=== PATIENT | female | born 1935 | race Caucasian/White ===

== ENCOUNTER 2022-11-16 10:11 | Inpatient (IN) | payer OTHER, MEDICARE ==
[~2022-11-16] VITALS: Ht 144.8 cm; Wt 58.1 kg
--- NOTE | 2022-11-16 10:17 | NUR ---
BIB FROM HOME BY GRANDDAUGTHER FOR INCREASED WEAKESS AND INABILITY TO WALK. PER GRANDDAUGTHER, PT WAS ADMITTED TO [facility] FOR UTI AND WAS RELEASED AND WAS TRANSFERRED TO "[facility]" 1X WK. PER GRANDDAUGTHER, PT HAS A MECHANICAL FALL LAST NIGHT AND PT CALLED HER GRANDDAUGHTER TO INFORM HER OF WHAT HAPPENED. HX - DM, HTN, PACE MAKER MEDS - ELIQUIS PT IS A PRYDEINIG SPEAKER. PT IS AAXO4, VVS BREATHING EVEN AND UNLABORED ON RA, PT IN GOWN, ON DIRT SHOVELER SHOWING NSR. SAFETY PRECAUTIONS AND COMFORT MEASURES IN PLACE. PENDING MD MANDUJANO AND ORDERS.
--- NOTE | 2022-11-16 10:18 | NUR ---
DR. BASSETT AT BEDSIDE EXAMINING THE PT.
[2022-11-16 10:20] VITALS: BP_SYST 122
[2022-11-16 10:48] LABS: BASOPHILS % (AUTO) 0.4 % (0.0-2.0); EOSINOPHILS # (AUTO) 0.1 K/uL (0.0-0.4); EOSINOPHILS % (AUTO) 0.8 % (0.0-4.0); HEMATOCRIT 33.7 % (36-48); HEMOGLOBIN 11.4 g/dL (12.0-16.0); LYMPHOCYTES # (AUTO) 1.4 K/uL (1.0-5.5); LYMPHOCYTES % (AUTO) 14.8 % (20.5-51.5); MEAN CORPUSCULAR HEMOGLOBIN 30 pg (27-31); MEAN CORPUSCULAR HGB CONC 34 % (32-36); MEAN CORPUSCULAR VOLUME 89 fL (79.0-98.0); MONOCYTES # (AUTO) 0.9 K/uL (0.0-1.0); MONOCYTES % (AUTO) 9.2 % (1.7-9.3); NEUTROPHILS # (AUTO) 7.1 K/uL (1.8-7.7); NEUTROPHILS % (AUTO) 74.8 % (40.0-70.0); PLATELET COUNT (AUTO) 232 K/uL (130-430); RED BLOOD CELL COUNT(AUTO) 3.78 MIL/uL (4.2-6.2); RED CELL DISTRIBUTION WIDTH 13.9 % (9.0-15.0); WHITE BLOOD COUNT (AUTO) 9.5 K/uL (4.8-10.8)
[2022-11-16 11:08] LABS: ALANINE AMINOTRANSFERASE 15 U/L (12-78); ALBUMIN 2.9 g/dL (3.4-4.8); ANION GAP 8 (5-15); ASPARTATE AMINOTRANSFERASE 16 U/L (10-37); CALCIUM 8.5 mg/dL (8.4-11.0); CHLORIDE 96 mmol/L (98-107); CREATININE 1.11 mg/dL (0.55-1.30); GLUCOSE 222 mg/dL (70-99); LIPASE 134 U/L (73-393); TOTAL BILIRUBIN 0.4 mg/dL (0.0-1.0); UREA NITROGEN, BLOOD 33 mg/dL (8-21)
[2022-11-16 11:10] LABS: ALCOHOL, BLOOD < 3 mg/dL (<10)
[2022-11-16] MEDS ORDERED: NACL 0.9% 1,000 ML IV ONE (11:30)
--- NOTE | 2022-11-16 11:52 | NUR ---
NOTIFIED ED ADMITTING, [facility], REGARDING DR. BASSETT'S REQEUST FOR ADMISSION/TRANSFER. PER DR. BASSETT, PT IS STABLE FOR TRANSFER. WILL CONTACT OUTREACH LIAISON REGARDING THIS MATTER. PER FACESHEET: [facility]
[2022-11-16 12:10] LABS: BILIRUBIN,URINE NEGATIVE (NEGATIVE); BLOOD, URINE NEGATIVE (NEGATIVE); CLARITY/URINE SL CLOUDY (CLEAR); COLOR,URINE YELLOW (YELLOW); GLUCOSE,URINE NEGATIVE (NEGATIVE); KETONES,URINE NEGATIVE (NEGATIVE); LEUKOCYTE ESTERASE ,URINE 2+ (NEGATIVE); NITRITE, URINE POSITIVE (NEGATIVE); PROTEIN URINE NEGATIVE (NEGATIVE); UROBILINOGEN,URINE 0.2 (0.2-1.0)
[2022-11-16 12:23] LABS: BACTERIA,URINE MANY /HPF (None Seen); RBC,URINE 0-3 /HPF (0-3)
[2022-11-16] MEDS ORDERED: cefTRIAXone 1 GM in D5W 50 ML IV ONE (12:30)
--- NOTE | 2022-11-16 12:30 | NUR ---
reinsurance clerk gave verbal auth for admission. lillianarn spoke to yas holden caser in
--- NOTE | 2022-11-16 12:40 | NUR ---
Admit bed requested Patient will be admitted to care of . Admitted to MED SURG unit. Diagnosis UTI Inpatient (Yes or No) YES Observation (Yes or No) NO Orientation concerns or request close to nursing station (Yes or No) NO Covid Status NEGATIVE On vent or bipap NO Isolation requirements NONE Needs a sitter NO From Home (Yes or if No enter name of facility)YES Requires Dialysis (Yes or No) NO Med Rec Completed (Yes of No) YES
[2022-11-16] MEDS ORDERED: LORazepam 2 MG/ML VIAL IVP PRN (12:45)
[2022-11-16] MEDS ORDERED: ONDANSETRON HCL 4 MG/2 ML VIAL IVP PRN (12:45)
[2022-11-16] MEDS ORDERED: MAGNESIUM SULFATE 50 ML IV PRN (12:45)
[2022-11-16] MEDS ORDERED: MUPIROCIN 2% TOPICAL OINTMENT 22 GM NS PRN (12:45)
[2022-11-16] MEDS ORDERED: ACETAMINOPHEN 325 MG TABLET PO PRN ×2 (12:45→17:45)
[2022-11-16] MEDS ORDERED: MORPHINE 2 MG/ML INJ. SYRINGE IVP PRN ×2 (12:45)
[2022-11-16] MEDS ORDERED: DOCUSATE SODIUM 100 MG CAPSULE PO PRN (12:45)
[2022-11-16] MEDS ORDERED: DEXTROSE 50% JECT 50 ML DISP.SYRIN IVP PRN (12:45)
[2022-11-16] MEDS ORDERED: ZOLPIDEM TARTRATE 5 MG TABLET PO PRN (12:45)
[2022-11-16] MEDS ORDERED: POTASSIUM CHLORIDE 20 MEQ TAB.PRT.SR PO PRN (12:45)
[2022-11-16] MEDS ORDERED: ALEN10TA25 PO (13:26)
[2022-11-16] MEDS ORDERED: DOCU-144 PO (13:26)
[2022-11-16] MEDS ORDERED: HYDR-3917 PO (13:26)
[2022-11-16] MEDS ORDERED: OSCD500 PO (13:26)
[2022-11-16] MEDS ORDERED: ACET325T PO (13:26)
[2022-11-16] MEDS ORDERED: FAMO-279 PO (13:26)
[2022-11-16] MEDS ORDERED: APIX2.5T PO (13:26)
[2022-11-16] MEDS ORDERED: METO25TA6 PO (13:38)
[2022-11-16] MEDS ORDERED: LEVO75TA7 PO (13:38)
[2022-11-16] MEDS ORDERED: METH-799 PO (13:38)
[2022-11-16] MEDS ORDERED: LOSA50TA3 PO (13:38)
[2022-11-16] MEDS ORDERED: FURO-149 PO (13:38)
[2022-11-16] MEDS ORDERED: ONDA-8 TL (13:38)
[2022-11-16] MEDS ORDERED: METF-379 PO (13:38)
[2022-11-16] MEDS ORDERED: SENN8.6T19 PO (13:39)
[2022-11-16] MEDS ORDERED: cefTRIAXone 1 GM VIAL ONE (14:02)
[2022-11-16] MEDS ORDERED: ONDANSETRON HCL 4 MG/2 ML VIAL IVP ONE (14:15)
--- NOTE | 2022-11-16 14:15 | NUR ---
CONSULTATION PAGED/CALLED Reason for Consultation: [] AFIB Person Who was Notified: [] SHI GONZALES OF DR ESCUDERO Consulting Physician: [] SHI THOMPSON COVERING Ged Tutor Specialty: [] CARDIO Ordering Physician: [] DR NEIL
--- NOTE | 2022-11-16 14:30 | NUR ---
RECEIVED PATIENT FROM ER VIA STRETCHER ACCOMPANIED BY NURSE AND FAMILY MEMBER. PATIENT IS A 86 YO FEMALE ADMITTED WITH DX: UTI. AAO X4, C/O NAUSEA UPON ARRIVAL WHICH SUBSIDED SPONTANEOUSLY. DENIES ANY OTHER DISCOMFORT PRESENTLY. ORIENTED TO SURROUNDING, SAFETY PRECAUTIONS INITIATED, CALL LIGHT IN REACH. ADMISSION WORKUP IN PROGRESS. WILL CONTINUE TO MONITOR CLOSELY.
--- NOTE | 2022-11-16 14:40 | NUR ---
REPORT GIVEN TO MISHA ROMAN FOR CONTIUNITY OF CARE. ALL QUESTIONS AND CONCERNS ADDRESSED. ALL CARE ENDORSED.
[2022-11-16 14:51] VITALS: BP_SYST 132
[2022-11-16 16:00] VITALS: BP_SYST 111
[2022-11-16] MEDS ORDERED: METOPROLOL SUCCINATE 25 MG TAB.SR.24H (TOPROL XL) PO ONE (18:00)
[2022-11-16] MEDS: NACL 0.9% 1,000 ML IV SCH (19:05)
[2022-11-16 20:00] VITALS: BP_SYST 104
[2022-11-16] MEDS ORDERED: HEPARIN SODIUM,PORCINE 5,000 UNITS/ML VIAL SUBCUT SCH (21:00)
[2022-11-17 02:33] VITALS: BP_SYST 110
[2022-11-17 07:07] LABS: BASOPHILS % (AUTO) 0.3 % (0.0-2.0); EOSINOPHILS # (AUTO) 0.1 K/uL (0.0-0.4); EOSINOPHILS % (AUTO) 0.9 % (0.0-4.0); HEMATOCRIT 30.1 % (36-48); HEMOGLOBIN 10.3 g/dL (12.0-16.0); LYMPHOCYTES # (AUTO) 2.7 K/uL (1.0-5.5); LYMPHOCYTES % (AUTO) 31.4 % (20.5-51.5); MEAN CORPUSCULAR HEMOGLOBIN 31 pg (27-31); MEAN CORPUSCULAR HGB CONC 34 % (32-36); MEAN CORPUSCULAR VOLUME 90 fL (79.0-98.0); MONOCYTES # (AUTO) 1.1 K/uL (0.0-1.0); MONOCYTES % (AUTO) 12.9 % (1.7-9.3); NEUTROPHILS # (AUTO) 4.8 K/uL (1.8-7.7); NEUTROPHILS % (AUTO) 54.5 % (40.0-70.0); PLATELET COUNT (AUTO) 211 K/uL (130-430); RED BLOOD CELL COUNT(AUTO) 3.36 MIL/uL (4.2-6.2); RED CELL DISTRIBUTION WIDTH 14.1 % (9.0-15.0); WHITE BLOOD COUNT (AUTO) 8.7 K/uL (4.8-10.8)
[2022-11-17 07:14] LABS: ANION GAP 4 (5-15); CALCIUM 7.9 mg/dL (8.4-11.0); CHLORIDE 103 mmol/L (98-107); CREATININE 0.99 mg/dL (0.55-1.30); GLUCOSE 116 mg/dL (70-99); UREA NITROGEN, BLOOD 24 mg/dL (8-21)
[2022-11-17 07:41] VITALS: BP_SYST 102
[2022-11-17] MEDS ORDERED: LEVOTHYROXINE SODIUM 0.075 MG TABLET PO ONE (08:30)
[2022-11-17] MEDS: METOPROLOL SUCCINATE 25 MG TAB.SR.24H (TOPROL XL) PO SCH (08:47)
[2022-11-17] MEDS: APIXABAN 2.5 MG TABLET PO SCH ×2 (08:48→21:43)
[2022-11-17] MEDS ORDERED: METOPROLOL TARTRATE 25 MG TABLET PO SCH (09:00)
[2022-11-17] MEDS ORDERED: LOSARTAN POTASSIUM 50 MG TABLET (COZAAR) PO SCH (09:00)
[2022-11-17] MEDS ORDERED: FUROSEMIDE 40 MG TABLET PO SCH (09:00)
[2022-11-17 11:20] VITALS: BP_SYST 100
[2022-11-17] MEDS: cefTRIAXone 1 GM in D5W 50 ML IV SCH (11:48)
[2022-11-17 12:00] VITALS: BP_SYST 112
[2022-11-17] MEDS: NACL 0.9% 1,000 ML IV SCH (14:29)
[2022-11-17 15:20] VITALS: BP_SYST 118
[2022-11-17 20:00] VITALS: BP_SYST 126
[2022-11-17] MEDS: INSULIN LISPRO SLIDING SCALE 100 UNITS/ML, 3 ML VIAL (humaLOG) SUBCUT PRN (21:47)
[2022-11-18] VITALS: BP_SYST 123
[2022-11-18] MEDS: LEVOTHYROXINE SODIUM 0.075 MG TABLET PO SCH (06:43)
[2022-11-18 07:23] LABS: ANION GAP 6 (5-15); CALCIUM 7.9 mg/dL (8.4-11.0); CHLORIDE 105 mmol/L (98-107); GLUCOSE 91 mg/dL (70-99); UREA NITROGEN, BLOOD 16 mg/dL (8-21)
[2022-11-18 07:37] LABS: BASOPHILS % (AUTO) 0.4 % (0.0-2.0); EOSINOPHILS # (AUTO) 0.2 K/uL (0.0-0.4); EOSINOPHILS % (AUTO) 2.6 % (0.0-4.0); HEMOGLOBIN 9.9 g/dL (12.0-16.0); LYMPHOCYTES # (AUTO) 1.9 K/uL (1.0-5.5); LYMPHOCYTES % (AUTO) 29.5 % (20.5-51.5); MEAN CORPUSCULAR HEMOGLOBIN 32 pg (27-31); MEAN CORPUSCULAR HGB CONC 34 % (32-36); MEAN CORPUSCULAR VOLUME 92 fL (79.0-98.0); MONOCYTES # (AUTO) 0.7 K/uL (0.0-1.0); NEUTROPHILS # (AUTO) 3.6 K/uL (1.8-7.7); NEUTROPHILS % (AUTO) 56.5 % (40.0-70.0); PLATELET COUNT (AUTO) 220 K/uL (130-430); RED BLOOD CELL COUNT(AUTO) 3.15 MIL/uL (4.2-6.2); RED CELL DISTRIBUTION WIDTH 13.8 % (9.0-15.0)
[2022-11-18 07:51] LABS: WHITE BLOOD COUNT (AUTO) 6.4 K/uL (4.8-10.8)
[2022-11-18 08:38] VITALS: BP_SYST 133
--- NOTE | 2022-11-18 08:50 | NUR ---
INITIAL ROUNDS Received pt AAOx4, no s/s resp distress, no c/o pain or discomfort. IVF infusing well at ordered rate with no s/s infiltration to site. Side rails up x3, bed alarm on for safety, call light within reach.
[2022-11-18] MEDS: APIXABAN 2.5 MG TABLET PO SCH ×2 (10:02→21:42)
[2022-11-18] MEDS: cefTRIAXone 1 GM in D5W 50 ML IV SCH (10:03)
[2022-11-18] MEDS: METOPROLOL SUCCINATE 25 MG TAB.SR.24H (TOPROL XL) PO SCH (10:03)
[2022-11-18 11:59] VITALS: BP_SYST 111
[2022-11-18] MEDS: INSULIN LISPRO SLIDING SCALE 100 UNITS/ML, 3 ML VIAL (humaLOG) SUBCUT PRN ×3 (12:14→21:27)
--- NOTE | 2022-11-18 14:31 | NUR ---
ISOLATION Pt now has e. Coli MDRO of the urine. Pt placed on contact isolation. Pt's granddaughter Nai called, awaiting call back.
--- NOTE | 2022-11-18 16:06 | NUR ---
Dietitian Recommendations * Recommend Cardiac; CCHO; Pureed Diet * Monitor POC BGs Please refer to nutrition assessment for details. GINO SORIANO Addendum: 11/18/22 at [address] Amended: Links added.
[2022-11-18 16:50] VITALS: BP_SYST 134
[2022-11-18] MEDS: NACL 0.9% 1,000 ML IV SCH (17:13)
--- NOTE | 2022-11-18 18:40 | NUR ---
FAMILY INFORMED Pt's granddaughter Nai called and informed of that the pt is now on contact isolation precaution s for E. coli MDRO of the urine. Briefly explained why pt placed on contact isolation and about the bacteria/antibiotics-teach back done.
--- NOTE | 2022-11-18 18:45 | NUR ---
CLOSING NOTE Pt sitting up in bed feeding herself dinner. No s/s resp distress, no c/o pain or discomfort. IVF infusing well at ordered rate with no s/s infiltration to site. Pt remains on contact isolation precautions for MDRO of the urine. Aspiration, skin and safety precautions remain in place. Call light within reach.
[2022-11-18 20:00] VITALS: BP_SYST 127
[2022-11-19] VITALS: BP_SYST 125
[2022-11-19] MEDS: NACL 0.9% 1,000 ML IV SCH ×2 (05:31→18:12)
[2022-11-19 06:32] LABS: BASOPHILS % (AUTO) 0.2 % (0.0-2.0); EOSINOPHILS # (AUTO) 0.2 K/uL (0.0-0.4); EOSINOPHILS % (AUTO) 2.3 % (0.0-4.0); HEMATOCRIT 29.7 % (36-48); HEMOGLOBIN 10.1 g/dL (12.0-16.0); LYMPHOCYTES # (AUTO) 1.9 K/uL (1.0-5.5); LYMPHOCYTES % (AUTO) 27.7 % (20.5-51.5); MEAN CORPUSCULAR HEMOGLOBIN 31 pg (27-31); MEAN CORPUSCULAR HGB CONC 34 % (32-36); MEAN CORPUSCULAR VOLUME 91 fL (79.0-98.0); MONOCYTES # (AUTO) 0.8 K/uL (0.0-1.0); MONOCYTES % (AUTO) 11.4 % (1.7-9.3); NEUTROPHILS # (AUTO) 4.1 K/uL (1.8-7.7); NEUTROPHILS % (AUTO) 58.4 % (40.0-70.0); PLATELET COUNT (AUTO) 235 K/uL (130-430); RED BLOOD CELL COUNT(AUTO) 3.27 MIL/uL (4.2-6.2); RED CELL DISTRIBUTION WIDTH 13.8 % (9.0-15.0)
[2022-11-19] MEDS: LEVOTHYROXINE SODIUM 0.075 MG TABLET PO SCH (06:33)
[2022-11-19 06:45] LABS: ANION GAP 7 (5-15); CALCIUM 7.8 mg/dL (8.4-11.0); CHLORIDE 104 mmol/L (98-107); GLUCOSE 114 mg/dL (70-99); UREA NITROGEN, BLOOD 16 mg/dL (8-21)
--- NOTE | 2022-11-19 08:10 | NUR ---
INITIAL ROUNDS Received pt AAOx4, no s/s resp distress, no c/o pain or discomfort. Pt on Contact isolation precautions for E. coli & MDRO of the urine. IVF infusing well at ordered rate with no s/s infiltration to site. Pt repositioned with pillow support for skin care and comfort. Side rails up x3, bed alarm on for safety, call light within reach.
[2022-11-19 08:26] VITALS: BP_SYST 122
[2022-11-19] MEDS: METOPROLOL SUCCINATE 25 MG TAB.SR.24H (TOPROL XL) PO SCH (09:08)
[2022-11-19] MEDS: cefTRIAXone 1 GM in D5W 50 ML IV SCH (09:09)
[2022-11-19] MEDS: APIXABAN 2.5 MG TABLET PO SCH ×2 (09:10→20:55)
[2022-11-19] MEDS: INSULIN LISPRO SLIDING SCALE 100 UNITS/ML, 3 ML VIAL (humaLOG) SUBCUT PRN (12:25)
[2022-11-19 16:35] VITALS: BP_SYST 120
--- NOTE | 2022-11-19 19:35 | NUR ---
CLOSING NOTE Pt resting quietly in bed with no s/s resp distress, no c/o pain or discomfort. Contact isolation precautions maintained throughout the shift. IVF infusing well at ordered rate to LFA/wrist with no s/s infiltration to site. Aspiration, skin and safety precautions remain in place. Endorsed care to cable splicer helper nurse Brooks. Call light within reach.
[2022-11-19 20:00] VITALS: BP_SYST 130
[2022-11-20] VITALS: BP_SYST 144
[2022-11-20 06:20] LABS: BASOPHILS # (AUTO) 0.1 K/uL (0.0-0.2); BASOPHILS % (AUTO) 0.7 % (0.0-2.0); EOSINOPHILS # (AUTO) 0.2 K/uL (0.0-0.4); EOSINOPHILS % (AUTO) 2.4 % (0.0-4.0); HEMATOCRIT 28.8 % (36-48); LYMPHOCYTES # (AUTO) 2.2 K/uL (1.0-5.5); LYMPHOCYTES % (AUTO) 28.4 % (20.5-51.5); MEAN CORPUSCULAR HEMOGLOBIN 31 pg (27-31); MEAN CORPUSCULAR HGB CONC 35 % (32-36); MEAN CORPUSCULAR VOLUME 88 fL (79.0-98.0); MONOCYTES # (AUTO) 0.8 K/uL (0.0-1.0); MONOCYTES % (AUTO) 10.5 % (1.7-9.3); NEUTROPHILS # (AUTO) 4.6 K/uL (1.8-7.7); PLATELET COUNT (AUTO) 245 K/uL (130-430); RED BLOOD CELL COUNT(AUTO) 3.27 MIL/uL (4.2-6.2); RED CELL DISTRIBUTION WIDTH 13.7 % (9.0-15.0); WHITE BLOOD COUNT (AUTO) 7.9 K/uL (4.8-10.8)
[2022-11-20 06:50] LABS: ANION GAP 7 (5-15); CALCIUM 8.1 mg/dL (8.4-11.0); CHLORIDE 102 mmol/L (98-107); CREATININE 0.91 mg/dL (0.55-1.30); GLUCOSE 112 mg/dL (70-99); UREA NITROGEN, BLOOD 13 mg/dL (8-21)
[2022-11-20] MEDS: LEVOTHYROXINE SODIUM 0.075 MG TABLET PO SCH (07:12)
[2022-11-20 08:31] VITALS: BP_SYST 137
[2022-11-20] MEDS ORDERED: AMOX-423 PO ×2 (09:03)
[2022-11-20] MEDS: cefTRIAXone 1 GM in D5W 50 ML IV SCH (10:00)
[2022-11-20] MEDS: METOPROLOL SUCCINATE 25 MG TAB.SR.24H (TOPROL XL) PO SCH (10:01)
[2022-11-20] MEDS: APIXABAN 2.5 MG TABLET PO SCH ×2 (10:02→20:48)
[2022-11-20 11:03] VITALS: BP_SYST 138
[2022-11-20] MEDS ORDERED: IPRATROPIUM/ALBUTEROL SULFATE 3 ML AMPUL.NEB (DUONEB) INH PRN (12:45)
[2022-11-20 16:54] VITALS: BP_SYST 133
[2022-11-20 17:32] VITALS: BP_SYST 133
[2022-11-20 20:00] VITALS: BP_SYST 115
[2022-11-20] MEDS: INSULIN LISPRO SLIDING SCALE 100 UNITS/ML, 3 ML VIAL (humaLOG) SUBCUT PRN (20:44)
[2022-11-20] MEDS: NACL 0.9% 1,000 ML IV SCH (23:36)
[2022-11-21 00:23] VITALS: BP_SYST 108
[2022-11-21] MEDS: LEVOTHYROXINE SODIUM 0.075 MG TABLET PO SCH (06:52)
[2022-11-21 07:15] LABS: ANION GAP 9 (5-15); CALCIUM 7.9 mg/dL (8.4-11.0); CHLORIDE 102 mmol/L (98-107); CREATININE 0.86 mg/dL (0.55-1.30); GLUCOSE 118 mg/dL (70-99); UREA NITROGEN, BLOOD 16 mg/dL (8-21)
[2022-11-21 07:58] LABS: BASOPHILS % (AUTO) 0.3 % (0.0-2.0); EOSINOPHILS # (AUTO) 0.1 K/uL (0.0-0.4); EOSINOPHILS % (AUTO) 1.8 % (0.0-4.0); HEMATOCRIT 27.9 % (36-48); HEMOGLOBIN 9.7 g/dL (12.0-16.0); LYMPHOCYTES # (AUTO) 1.7 K/uL (1.0-5.5); LYMPHOCYTES % (AUTO) 20.9 % (20.5-51.5); MEAN CORPUSCULAR HEMOGLOBIN 31 pg (27-31); MEAN CORPUSCULAR HGB CONC 35 % (32-36); MEAN CORPUSCULAR VOLUME 91 fL (79.0-98.0); MONOCYTES # (AUTO) 0.9 K/uL (0.0-1.0); NEUTROPHILS # (AUTO) 5.3 K/uL (1.8-7.7); PLATELET COUNT (AUTO) 262 K/uL (130-430); RED BLOOD CELL COUNT(AUTO) 3.07 MIL/uL (4.2-6.2); RED CELL DISTRIBUTION WIDTH 13.6 % (9.0-15.0)
[2022-11-21 08:42] VITALS: BP_SYST 141
[2022-11-21] MEDS: METOPROLOL SUCCINATE 25 MG TAB.SR.24H (TOPROL XL) PO SCH (08:44)
[2022-11-21] MEDS: APIXABAN 2.5 MG TABLET PO SCH (08:45)
[2022-11-21] MEDS: cefTRIAXone 1 GM in D5W 50 ML IV SCH (08:46)
[2022-11-21 11:49] VITALS: BP_SYST 145
--- NOTE | 2022-11-21 13:16 | NUR ---
Patient accepted at [facility] Room 22B-number for report [phone]. Ambulance transport by [facility] [phone]- at 4:30 PM. Daughter, Dena, agreed to transfer.
[2022-11-21 15:22] VITALS: BP_SYST 132
--- NOTE | 2022-11-21 15:53 | NUR ---
Called to [facility] and gave report to @ [phone]. Called Grand daughter , Anu and updated her on patient's current condition and transfer at [facility] room # 22B.
--- NOTE | 2022-11-21 17:50 | NUR ---
D/C Patient to [facility] via [facility] via gurney. Patient's awake, alert in no acute distress. Gave the discharge documents to one EMT. Patient speaks Danish only but grand daughter Anu was on the phone when given medication reconciliation form and D/C instructions. Exit Care provided. Patient verbalized understanding. discussed with patient the results and treatment provided. Patient is going to [facility] for skilled PT. Patient remains weak, as per PT's note, patient's able to ambulate 500 feet. Patient's in stable condition, ID band removed. IV catheter removed, intact and dressing applied, no active bleeding. All belongings sent with patient. BP 132/71; WV 65; RR 16; O2 sat on RA 96-98 % with no c/o any pain or discomfort.
[2022-11-21 17:51] VITALS: BP_SYST 116
== END 2022-11-21 17:50 | disposition home health service (06) | DRG 463 ==
LOC: SED 10:11 → SMU 12:41
PROVIDERS: ADMIT General Practice; ATTEND General Practice
DX: N39.0 Urinary tract infection, site not specified (principal); E44.0 Moderate protein-calorie malnutrition; D63.8 Anemia in other chronic diseases classified elsewhere; E87.1 Hypo-osmolality and hyponatremia; E86.0 Dehydration; I48.91 Unspecified atrial fibrillation; E11.9 Type 2 diabetes mellitus without complications; B96.20 Unspecified Escherichia coli [E. coli] as the cause of diseases classified elsewhere; E87.5 Hyperkalemia; I10 Essential (primary) hypertension; Z68.27 Body mass index [BMI] 27.0-27.9, adult; I25.10 Atherosclerotic heart disease of native coronary artery without angina pectoris; Z20.822 Contact with and (suspected) exposure to COVID-19; Z95.0 Presence of cardiac pacemaker; Z79.01 Long term (current) use of anticoagulants
CPT/HCPCS: 36415; 70450-TC; 71045; 72125-TC; 72170-TC; 76376; 80048; 80053; 81000; 83037; 83605; 83690; 83735; 83880; 83930; 84484; 85025; 87040; 87086; 93005; 93306; 93971; 94760; 96361; 96365; 96375; 97110-GP; 97116-GP; 97530-GP; 99291; G0482; J0696; J1644; J2270; J2405; J7060

== ENCOUNTER 2022-11-27 15:05 | Inpatient (IN) | payer OTHER, MEDICARE ==
[~2022-11-27] VITALS: Ht 160 cm; Wt 55.8 kg
[~2022-11-27 15:05] MED LIST: ACET325T PO; ALEN10TA25 PO; AMOX-423 PO; APIX2.5T PO; DOCU-144 PO; FAMO-279 PO; FURO-149 PO; HYDR-3917 PO; LEVO75TA7 PO; LOSA50TA3 PO; METF-379 PO; METH-799 PO; METO25TA6 PO; ONDA-8 TL; OSCD500 PO; SENN8.6T19 PO
[2022-11-27] MEDS ORDERED: NACL 0.9% 1,000 ML IV ONE (15:15)
[2022-11-27 15:21] VITALS: BP_SYST 153
[2022-11-27 16:01] LABS: BASOPHILS % (AUTO) 0.2 % (0.0-2.0); EOSINOPHILS # (AUTO) 0.1 K/uL (0.0-0.4); EOSINOPHILS % (AUTO) 0.5 % (0.0-4.0); HEMATOCRIT 34.2 % (36-48); HEMOGLOBIN 11.6 g/dL (12.0-16.0); LYMPHOCYTES # (AUTO) 1.6 K/uL (1.0-5.5); LYMPHOCYTES % (AUTO) 12.9 % (20.5-51.5); MEAN CORPUSCULAR HEMOGLOBIN 30 pg (27-31); MEAN CORPUSCULAR HGB CONC 34 % (32-36); MEAN CORPUSCULAR VOLUME 88 fL (79.0-98.0); MONOCYTES # (AUTO) 0.7 K/uL (0.0-1.0); MONOCYTES % (AUTO) 5.3 % (1.7-9.3); NEUTROPHILS # (AUTO) 10.3 K/uL (1.8-7.7); NEUTROPHILS % (AUTO) 81.1 % (40.0-70.0); PLATELET COUNT (AUTO) 433 K/uL (130-430); RED BLOOD CELL COUNT(AUTO) 3.88 MIL/uL (4.2-6.2); WHITE BLOOD COUNT (AUTO) 12.7 K/uL (4.8-10.8)
[2022-11-27 16:14] LABS: ALANINE AMINOTRANSFERASE 25 U/L (12-78); ALBUMIN 3.1 g/dL (3.4-4.8); ANION GAP 11 (5-15); ASPARTATE AMINOTRANSFERASE 26 U/L (10-37); CALCIUM 8.9 mg/dL (8.4-11.0); CHLORIDE 96 mmol/L (98-107); CREATININE 0.89 mg/dL (0.55-1.30); GLUCOSE 142 mg/dL (70-99); TOTAL BILIRUBIN 0.2 mg/dL (0.0-1.0); UREA NITROGEN, BLOOD 21 mg/dL (8-21)
[2022-11-27 17:31] LABS: BILIRUBIN,URINE NEGATIVE (NEGATIVE); BLOOD, URINE NEGATIVE (NEGATIVE); CLARITY/URINE CLEAR (CLEAR); COLOR,URINE YELLOW (YELLOW); GLUCOSE,URINE NEGATIVE (NEGATIVE); KETONES,URINE NEGATIVE (NEGATIVE); LEUKOCYTE ESTERASE ,URINE NEGATIVE (NEGATIVE); NITRITE, URINE NEGATIVE (NEGATIVE); PROTEIN URINE NEGATIVE (NEGATIVE); UROBILINOGEN,URINE 0.2 (0.2-1.0)
[2022-11-27] MEDS ORDERED: ACETAMINOPHEN 500 MG TABLET PO ONE (18:15)
[2022-11-27] MEDS ORDERED: VANCOMYCIN HCL 1,000 MG in NS 250 ML IV ONE (18:30)
[2022-11-27] MEDS ORDERED: MEROPENEM 1 GM IVPB PREMIX 50 ML IV ONE (18:30)
[2022-11-27] MEDS ORDERED: ONDANSETRON HCL 4 MG/2 ML VIAL IVP PRN ×2 (18:45→23:45)
[2022-11-27] MEDS ORDERED: MUPIROCIN 2% TOPICAL OINTMENT 22 GM NS PRN (18:45)
[2022-11-27] MEDS ORDERED: DEXTROSE 50% JECT 50 ML DISP.SYRIN IVP PRN (18:45)
[2022-11-27] MEDS ORDERED: MORPHINE 2 MG/ML INJ. SYRINGE IVP PRN (18:45)
[2022-11-27] MEDS ORDERED: DOCUSATE SODIUM 100 MG CAPSULE PO PRN (18:45)
[2022-11-27] MEDS ORDERED: ACETAMINOPHEN 325 MG TABLET PO PRN ×3 (18:45→23:45)
[2022-11-27] MEDS ORDERED: POTASSIUM CHLORIDE 20 MEQ TAB.PRT.SR PO PRN (18:45)
[2022-11-27] MEDS ORDERED: MAGNESIUM SULFATE 50 ML IV PRN (18:45)
[2022-11-27] MEDS ORDERED: NACL 0.9% 1,000 ML IV SCH (19:00)
[2022-11-27] MEDS ORDERED: INSULIN Lispro 100 UNITS/ML, 3 ML VIAL (humaLOG) ONE (19:56)
[2022-11-27] MEDS: INSULIN LISPRO SLIDING SCALE 100 UNITS/ML, 3 ML VIAL (humaLOG) SUBCUT PRN (20:24)
[2022-11-27 23:03] VITALS: BP_SYST 118
[2022-11-27] MEDS ORDERED: HYDROcodone/ACETAMIN 5-325 MG TAB (NORCO/ VICODIN) PO PRN (23:45)
[2022-11-27] MEDS ORDERED: ALENDRONATE SODIUM 10 MG TABLET (FOSAMAX) PO SCH (23:45)
[2022-11-27] MEDS ORDERED: cefTRIAXone 1 GM in D5W 50 ML IV SCH (23:45)
[2022-11-27] MEDS ORDERED: ONDANSETRON 4 MG ODT TAB TL PRN (23:45)
[2022-11-27] MEDS ORDERED: NALOXONE HCL 0.4 MG/ML AMP (NARCAN) IVP PRN (23:45)
[2022-11-28] MEDS ORDERED: INSULIN REGULAR, HUMAN 100 UNITS/ML, 3 ML VIAL (humuLIN R) SUBCUT PRN
[2022-11-28] MEDS ORDERED: KCL 20 mEq in NS 1000 mL 1,000 ML IV ONE (00:08)
[2022-11-28] MEDS: KCL 20 mEq in NS 1000 mL 1,000 ML IV SCH ×2 (00:20→12:43)
[2022-11-28] MEDS: PANTOPRAZOLE SODIUM 40 MG/VIAL (PROTONIX) IVP SCH ×2 (00:24→09:29)
[2022-11-28] MEDS ORDERED: PIPERACILLIN/TAZOBACTAM 3.375 GM/VIAL (ZOSYN) IV ONE (00:36)
[2022-11-28] MEDS: PIPERACILLIN/TAZO 3.375/DEX-IS 50 ML IV SCH ×5 (01:01→23:56)
[2022-11-28 01:19] VITALS: BP_SYST 120
[2022-11-28] MEDS: LEVOTHYROXINE SODIUM 0.075 MG TABLET PO SCH (06:28)
[2022-11-28 07:21] LABS: BASOPHILS % (AUTO) 0.3 % (0.0-2.0); EOSINOPHILS # (AUTO) 0.1 K/uL (0.0-0.4); EOSINOPHILS % (AUTO) 0.6 % (0.0-4.0); HEMATOCRIT 30.9 % (36-48); HEMOGLOBIN 10.6 g/dL (12.0-16.0); LYMPHOCYTES # (AUTO) 2.1 K/uL (1.0-5.5); LYMPHOCYTES % (AUTO) 20.8 % (20.5-51.5); MEAN CORPUSCULAR HEMOGLOBIN 31 pg (27-31); MEAN CORPUSCULAR HGB CONC 34 % (32-36); MEAN CORPUSCULAR VOLUME 90 fL (79.0-98.0); MONOCYTES # (AUTO) 0.8 K/uL (0.0-1.0); MONOCYTES % (AUTO) 7.9 % (1.7-9.3); NEUTROPHILS # (AUTO) 7.2 K/uL (1.8-7.7); NEUTROPHILS % (AUTO) 70.4 % (40.0-70.0); PLATELET COUNT (AUTO) 368 K/uL (130-430); RED BLOOD CELL COUNT(AUTO) 3.43 MIL/uL (4.2-6.2); RED CELL DISTRIBUTION WIDTH 14.2 % (9.0-15.0); WHITE BLOOD COUNT (AUTO) 10.2 K/uL (4.8-10.8)
[2022-11-28 07:33] LABS: ALANINE AMINOTRANSFERASE 20 U/L (12-78); ALBUMIN 2.5 g/dL (3.4-4.8); AMYLASE 57 U/L (0-100); ANION GAP 8 (5-15); ASPARTATE AMINOTRANSFERASE 20 U/L (10-37); CALCIUM 7.9 mg/dL (8.4-11.0); CHLORIDE 103 mmol/L (98-107); CREATININE 0.95 mg/dL (0.55-1.30); GLUCOSE 111 mg/dL (70-99); LIPASE 110 U/L (73-393); TOTAL BILIRUBIN 0.5 mg/dL (0.0-1.0); UREA NITROGEN, BLOOD 18 mg/dL (8-21)
[2022-11-28] MEDS ORDERED: metFORMIN HCL 500 MG TABLET PO SCH (08:00)
[2022-11-28] MEDS: MORPHINE 2 MG/ML INJ. SYRINGE IVP PRN ×2 (08:18→16:42)
[2022-11-28] MEDS ORDERED: ALEN70TA84 PO (08:35)
[2022-11-28] MEDS ORDERED: methocarbamoL 500 MG TABLET PO SCH (09:00)
[2022-11-28] MEDS: SENNOSIDES 8.6 MG TABLET PO SCH ×2 (09:29→21:16)
[2022-11-28] MEDS: CALCIUM CARBONATE/VITAMIN D3 1 TAB TABLET PO SCH ×2 (09:29→21:16)
[2022-11-28] MEDS: APIXABAN 2.5 MG TABLET PO SCH ×2 (09:29→21:18)
[2022-11-28] MEDS: DOCUSATE SODIUM 100 MG CAPSULE PO SCH ×2 (09:29→21:16)
[2022-11-28] MEDS: LOSARTAN POTASSIUM 50 MG TABLET (COZAAR) PO SCH ×2 (09:30→21:00)
[2022-11-28] MEDS: METOPROLOL TARTRATE 25 MG TABLET PO SCH ×2 (09:31→21:16)
[2022-11-28 11:05] VITALS: BP_SYST 104
[2022-11-28] MEDS ORDERED: DIATR MEGLU/DIATRIZ SOD 30 ML SOLUTION PO ONE (13:57)
[2022-11-28 16:55] VITALS: BP_SYST 110
[2022-11-28 20:00] VITALS: BP_SYST 107
[2022-11-28] MEDS: metroNIDAZOLE 500 mg/NS 100 ML IV SCH (21:42)
[2022-11-29 00:14] VITALS: BP_SYST 108
[2022-11-29] MEDS: KCL 20 mEq in NS 1000 mL 1,000 ML IV SCH ×2 (03:29→18:14)
[2022-11-29] MEDS: PIPERACILLIN/TAZO 3.375/DEX-IS 50 ML IV SCH ×3 (06:11→18:13)
[2022-11-29] MEDS: LEVOTHYROXINE SODIUM 0.075 MG TABLET PO SCH ×2 (06:11→06:15)
[2022-11-29] MEDS: metroNIDAZOLE 500 mg/NS 100 ML IV SCH ×3 (06:11→21:49)
[2022-11-29 07:10] LABS: BASOPHILS % (AUTO) 0.3 % (0.0-2.0); EOSINOPHILS # (AUTO) 0.2 K/uL (0.0-0.4); EOSINOPHILS % (AUTO) 3.1 % (0.0-4.0); HEMATOCRIT 30.7 % (36-48); HEMOGLOBIN 10.4 g/dL (12.0-16.0); LYMPHOCYTES # (AUTO) 2.3 K/uL (1.0-5.5); LYMPHOCYTES % (AUTO) 30.8 % (20.5-51.5); MEAN CORPUSCULAR HEMOGLOBIN 30 pg (27-31); MEAN CORPUSCULAR HGB CONC 34 % (32-36); MEAN CORPUSCULAR VOLUME 88 fL (79.0-98.0); MONOCYTES # (AUTO) 0.7 K/uL (0.0-1.0); MONOCYTES % (AUTO) 9.7 % (1.7-9.3); NEUTROPHILS # (AUTO) 4.3 K/uL (1.8-7.7); NEUTROPHILS % (AUTO) 56.1 % (40.0-70.0); PLATELET COUNT (AUTO) 351 K/uL (130-430); RED BLOOD CELL COUNT(AUTO) 3.48 MIL/uL (4.2-6.2); WHITE BLOOD COUNT (AUTO) 7.6 K/uL (4.8-10.8)
[2022-11-29 07:41] LABS: INR 1.1 (0.8-1.2)
[2022-11-29] MEDS ORDERED: MIDAZOLAM HCL 5 MG/5 ML VIAL ONE (07:52)
[2022-11-29] MEDS ORDERED: MEPERIDINE 50 MG/ML VIAL ONE (07:52)
[2022-11-29 08:17] LABS: ALANINE AMINOTRANSFERASE 22 U/L (12-78); ALBUMIN 2.5 g/dL (3.4-4.8); ANION GAP 8 (5-15); ASPARTATE AMINOTRANSFERASE 22 U/L (10-37); CHLORIDE 107 mmol/L (98-107); CREATININE 0.91 mg/dL (0.55-1.30); GLUCOSE 117 mg/dL (70-99); TOTAL BILIRUBIN 0.3 mg/dL (0.0-1.0); UREA NITROGEN, BLOOD 13 mg/dL (8-21)
[2022-11-29] MEDS: DOCUSATE SODIUM 100 MG CAPSULE PO SCH ×2 (09:00→21:47)
[2022-11-29] MEDS: SENNOSIDES 8.6 MG TABLET PO SCH ×2 (09:00→21:47)
[2022-11-29] MEDS: METOPROLOL TARTRATE 25 MG TABLET PO SCH ×2 (11:56→21:48)
[2022-11-29] MEDS: PANTOPRAZOLE SODIUM 40 MG/VIAL (PROTONIX) IVP SCH (11:56)
[2022-11-29] MEDS: LOSARTAN POTASSIUM 50 MG TABLET (COZAAR) PO SCH ×2 (11:57→21:48)
[2022-11-29] MEDS: CALCIUM CARBONATE/VITAMIN D3 1 TAB TABLET PO SCH ×2 (11:57→21:47)
[2022-11-29] MEDS: APIXABAN 2.5 MG TABLET PO SCH ×2 (11:59→21:50)
[2022-11-29 12:24] VITALS: BP_SYST 109
[2022-11-29 16:31] VITALS: BP_SYST 117
[2022-11-29 19:55] VITALS: BP_SYST 128
[2022-11-30] VITALS: BP_SYST 131
[2022-11-30] MEDS: PIPERACILLIN/TAZO 3.375/DEX-IS 50 ML IV SCH ×5 (00:11→23:46)
[2022-11-30] MEDS: INSULIN LISPRO SLIDING SCALE 100 UNITS/ML, 3 ML VIAL (humaLOG) SUBCUT PRN ×2 (00:21→12:54)
[2022-11-30] MEDS: metroNIDAZOLE 500 mg/NS 100 ML IV SCH ×3 (05:50→22:14)
[2022-11-30] MEDS: LEVOTHYROXINE SODIUM 0.075 MG TABLET PO SCH (06:21)
[2022-11-30 06:31] LABS: BASOPHILS % (AUTO) 0.5 % (0.0-2.0); EOSINOPHILS # (AUTO) 0.1 K/uL (0.0-0.4); EOSINOPHILS % (AUTO) 1.8 % (0.0-4.0); HEMOGLOBIN 10.4 g/dL (12.0-16.0); LYMPHOCYTES # (AUTO) 2.4 K/uL (1.0-5.5); LYMPHOCYTES % (AUTO) 30.7 % (20.5-51.5); MEAN CORPUSCULAR HEMOGLOBIN 30 pg (27-31); MEAN CORPUSCULAR HGB CONC 34 % (32-36); MEAN CORPUSCULAR VOLUME 89 fL (79.0-98.0); MONOCYTES # (AUTO) 0.7 K/uL (0.0-1.0); MONOCYTES % (AUTO) 8.6 % (1.7-9.3); NEUTROPHILS # (AUTO) 4.6 K/uL (1.8-7.7); NEUTROPHILS % (AUTO) 58.4 % (40.0-70.0); PLATELET COUNT (AUTO) 340 K/uL (130-430); RED BLOOD CELL COUNT(AUTO) 3.48 MIL/uL (4.2-6.2); WHITE BLOOD COUNT (AUTO) 7.9 K/uL (4.8-10.8)
[2022-11-30 06:43] LABS: ANION GAP 6 (5-15); CHLORIDE 108 mmol/L (98-107); CREATININE 0.81 mg/dL (0.55-1.30); GLUCOSE 103 mg/dL (70-99); UREA NITROGEN, BLOOD 13 mg/dL (8-21)
[2022-11-30] MEDS: PANTOPRAZOLE SODIUM 40 MG/VIAL (PROTONIX) IVP SCH (10:32)
[2022-11-30] MEDS: CALCIUM CARBONATE/VITAMIN D3 1 TAB TABLET PO SCH ×2 (10:34→22:16)
[2022-11-30] MEDS: SENNOSIDES 8.6 MG TABLET PO SCH ×2 (10:35→22:15)
[2022-11-30] MEDS: DOCUSATE SODIUM 100 MG CAPSULE PO SCH ×2 (10:36→22:17)
[2022-11-30] MEDS: KCL 20 mEq in NS 1000 mL 1,000 ML IV SCH ×2 (10:37→17:57)
[2022-11-30] MEDS: LOSARTAN POTASSIUM 50 MG TABLET (COZAAR) PO SCH ×2 (10:42→22:18)
[2022-11-30] MEDS: METOPROLOL TARTRATE 25 MG TABLET PO SCH ×2 (10:44→22:16)
[2022-11-30] MEDS: APIXABAN 2.5 MG TABLET PO SCH ×2 (10:46→22:17)
[2022-11-30 11:17] VITALS: BP_SYST 136
[2022-11-30 15:12] VITALS: BP_SYST 150
[2022-11-30 16:10] VITALS: BP_SYST 135
[2022-11-30 17:03] VITALS: BP_SYST 125
[2022-11-30 21:00] VITALS: BP_SYST 136
[2022-12-01 01:06] LABS: CARBOHYDRATE AG 19-9 <2 U/mL (0-35); CEA 5.1 ng/mL (0.0-4.7)
[2022-12-01 02:00] VITALS: BP_SYST 141
[2022-12-01 03:06] LABS: AFP, TUMOR MARKER <1.8 ng/mL (0.0-8.7)
[2022-12-01] MEDS: LEVOTHYROXINE SODIUM 0.075 MG TABLET PO SCH (06:17)
[2022-12-01] MEDS: metroNIDAZOLE 500 mg/NS 100 ML IV SCH ×3 (06:17→21:10)
[2022-12-01] MEDS: PIPERACILLIN/TAZO 3.375/DEX-IS 50 ML IV SCH ×3 (06:17→19:48)
[2022-12-01] MEDS: KCL 20 mEq in NS 1000 mL 1,000 ML IV SCH ×2 (06:19→16:10)
[2022-12-01 06:50] LABS: BASOPHILS # (AUTO) 0.1 K/uL (0.0-0.2); BASOPHILS % (AUTO) 0.8 % (0.0-2.0); EOSINOPHILS # (AUTO) 0.1 K/uL (0.0-0.4); EOSINOPHILS % (AUTO) 1.1 % (0.0-4.0); HEMATOCRIT 33.2 % (36-48); HEMOGLOBIN 11.1 g/dL (12.0-16.0); LYMPHOCYTES # (AUTO) 1.8 K/uL (1.0-5.5); LYMPHOCYTES % (AUTO) 21.2 % (20.5-51.5); MEAN CORPUSCULAR HEMOGLOBIN 30 pg (27-31); MEAN CORPUSCULAR HGB CONC 33 % (32-36); MEAN CORPUSCULAR VOLUME 89 fL (79.0-98.0); MONOCYTES # (AUTO) 0.7 K/uL (0.0-1.0); MONOCYTES % (AUTO) 8.4 % (1.7-9.3); NEUTROPHILS % (AUTO) 68.5 % (40.0-70.0); PLATELET COUNT (AUTO) 323 K/uL (130-430); RED BLOOD CELL COUNT(AUTO) 3.71 MIL/uL (4.2-6.2); WHITE BLOOD COUNT (AUTO) 8.7 K/uL (4.8-10.8)
[2022-12-01 07:39] LABS: ANION GAP 10 (5-15); CALCIUM 8.2 mg/dL (8.4-11.0); CHLORIDE 105 mmol/L (98-107); CREATININE 0.79 mg/dL (0.55-1.30); GLUCOSE 148 mg/dL (70-99); UREA NITROGEN, BLOOD 8 mg/dL (8-21)
[2022-12-01 08:17] VITALS: BP_SYST 158
[2022-12-01] MEDS: METOPROLOL TARTRATE 25 MG TABLET PO SCH ×2 (08:40→21:09)
[2022-12-01] MEDS: PANTOPRAZOLE SODIUM 40 MG/VIAL (PROTONIX) IVP SCH (08:40)
[2022-12-01] MEDS: LOSARTAN POTASSIUM 50 MG TABLET (COZAAR) PO SCH ×2 (08:41→21:09)
[2022-12-01] MEDS: CALCIUM CARBONATE/VITAMIN D3 1 TAB TABLET PO SCH ×2 (08:42→21:09)
[2022-12-01] MEDS: DOCUSATE SODIUM 100 MG CAPSULE PO SCH ×2 (08:42→21:00)
[2022-12-01] MEDS: APIXABAN 2.5 MG TABLET PO SCH ×2 (08:45→21:11)
[2022-12-01] MEDS: SENNOSIDES 8.6 MG TABLET PO SCH ×2 (09:00→21:00)
[2022-12-01 15:08] VITALS: BP_SYST 146
[2022-12-01 19:55] VITALS: BP_SYST 161
[2022-12-01] MEDS: INSULIN LISPRO SLIDING SCALE 100 UNITS/ML, 3 ML VIAL (humaLOG) SUBCUT PRN (21:15)
[2022-12-02] MEDS: PIPERACILLIN/TAZO 3.375/DEX-IS 50 ML IV SCH ×4 (01:02→18:09)
[2022-12-02 01:03] VITALS: BP_SYST 154
[2022-12-02] MEDS: KCL 20 mEq in NS 1000 mL 1,000 ML IV SCH ×3 (01:03→20:45)
[2022-12-02] MEDS: metroNIDAZOLE 500 mg/NS 100 ML IV SCH ×3 (05:56→20:54)
[2022-12-02] MEDS: LEVOTHYROXINE SODIUM 0.075 MG TABLET PO SCH (06:00)
[2022-12-02 08:00] VITALS: BP_SYST 149
[2022-12-02 08:53] LABS: ANION GAP 13 (5-15); CALCIUM 7.7 mg/dL (8.4-11.0); CHLORIDE 105 mmol/L (98-107); CREATININE 0.85 mg/dL (0.55-1.30); GLUCOSE 140 mg/dL (70-99); UREA NITROGEN, BLOOD 8 mg/dL (8-21)
[2022-12-02 08:58] LABS: BASOPHILS % (AUTO) 0.5 % (0.0-2.0); EOSINOPHILS % (AUTO) 0.4 % (0.0-4.0); HEMATOCRIT 32.1 % (36-48); HEMOGLOBIN 10.7 g/dL (12.0-16.0); LYMPHOCYTES # (AUTO) 1.7 K/uL (1.0-5.5); LYMPHOCYTES % (AUTO) 18.8 % (20.5-51.5); MEAN CORPUSCULAR HEMOGLOBIN 30 pg (27-31); MEAN CORPUSCULAR HGB CONC 33 % (32-36); MONOCYTES # (AUTO) 0.9 K/uL (0.0-1.0); MONOCYTES % (AUTO) 10.5 % (1.7-9.3); NEUTROPHILS # (AUTO) 6.3 K/uL (1.8-7.7); NEUTROPHILS % (AUTO) 69.8 % (40.0-70.0); PLATELET COUNT (AUTO) 331 K/uL (130-430); RED BLOOD CELL COUNT(AUTO) 3.52 MIL/uL (4.2-6.2); RED CELL DISTRIBUTION WIDTH 14.3 % (9.0-15.0)
[2022-12-02] MEDS: DOCUSATE SODIUM 100 MG CAPSULE PO SCH ×2 (09:00→20:47)
[2022-12-02 09:05] LABS: MEAN CORPUSCULAR VOLUME 91 fL (79.0-98.0)
[2022-12-02] MEDS: LOSARTAN POTASSIUM 50 MG TABLET (COZAAR) PO SCH ×2 (09:32→20:44)
[2022-12-02] MEDS: SENNOSIDES 8.6 MG TABLET PO SCH ×2 (09:32→20:42)
[2022-12-02] MEDS: CALCIUM CARBONATE/VITAMIN D3 1 TAB TABLET PO SCH ×2 (09:33→20:45)
[2022-12-02] MEDS: METOPROLOL TARTRATE 25 MG TABLET PO SCH ×2 (09:33→20:45)
[2022-12-02] MEDS: APIXABAN 2.5 MG TABLET PO SCH ×2 (09:34→20:43)
[2022-12-02] MEDS: PANTOPRAZOLE SODIUM 40 MG/VIAL (PROTONIX) IVP SCH (10:03)
[2022-12-02 11:30] VITALS: BP_SYST 149
[2022-12-02] MEDS ORDERED: LevALBUTEROL HCL 1.25 MG/0.5 ML *CONC.* VIAL.NEB (XOPENEX CONC.) INH PRN (12:30)
[2022-12-02] MEDS: LevALBUTEROL HCL 1.25 MG/0.5 ML *CONC.* VIAL.NEB (XOPENEX CONC.) INH SCH ×2 (12:37→20:19)
[2022-12-02 15:12] VITALS: BP_SYST 130
[2022-12-02 19:41] VITALS: BP_SYST 149
[2022-12-02] MEDS: INSULIN LISPRO SLIDING SCALE 100 UNITS/ML, 3 ML VIAL (humaLOG) SUBCUT PRN (20:58)
[2022-12-03] MEDS: PIPERACILLIN/TAZO 3.375/DEX-IS 50 ML IV SCH ×5 (00:37→23:32)
[2022-12-03 00:38] VITALS: BP_SYST 144
[2022-12-03] MEDS: LevALBUTEROL HCL 1.25 MG/0.5 ML *CONC.* VIAL.NEB (XOPENEX CONC.) INH SCH ×4 (01:00→20:55)
[2022-12-03] MEDS: KCL 20 mEq in NS 1000 mL 1,000 ML IV SCH ×2 (04:29→18:15)
[2022-12-03] MEDS: metroNIDAZOLE 500 mg/NS 100 ML IV SCH ×3 (04:59→21:55)
[2022-12-03] MEDS: LEVOTHYROXINE SODIUM 0.075 MG TABLET PO SCH (06:11)
[2022-12-03] MEDS ORDERED: LevALBUTEROL HCL 1.25 MG/0.5 ML *CONC.* VIAL.NEB (XOPENEX CONC.) INH ONE (06:58)
[2022-12-03 08:15] VITALS: BP_SYST 148
[2022-12-03] MEDS: DOCUSATE SODIUM 100 MG CAPSULE PO SCH ×2 (09:00→20:44)
[2022-12-03] MEDS: PANTOPRAZOLE SODIUM 40 MG/VIAL (PROTONIX) IVP SCH (09:13)
[2022-12-03] MEDS: SENNOSIDES 8.6 MG TABLET PO SCH ×2 (10:32→20:44)
[2022-12-03] MEDS: CALCIUM CARBONATE/VITAMIN D3 1 TAB TABLET PO SCH ×2 (10:32→20:42)
[2022-12-03] MEDS: LOSARTAN POTASSIUM 50 MG TABLET (COZAAR) PO SCH ×2 (10:33→20:43)
[2022-12-03] MEDS: APIXABAN 2.5 MG TABLET PO SCH ×2 (10:33→20:44)
[2022-12-03] MEDS: METOPROLOL TARTRATE 25 MG TABLET PO SCH ×2 (10:34→20:42)
[2022-12-03 11:35] VITALS: BP_SYST 146
[2022-12-03] MEDS: INSULIN LISPRO SLIDING SCALE 100 UNITS/ML, 3 ML VIAL (humaLOG) SUBCUT PRN ×2 (13:18→17:51)
[2022-12-03] MEDS ORDERED: ACETAMINOPHEN 325 MG TABLET PO PRN (15:00)
[2022-12-03 16:59] VITALS: BP_SYST 141
[2022-12-03] MEDS ORDERED: FUROSEMIDE 20 MG/2 ML VIAL IVP ONE (22:00)
[2022-12-03] MEDS: methylPREDNISolone SOD SUCC/PF 62.5 MG/ML VIAL IVP SCH (23:31)
[2022-12-03 23:43] VITALS: BP_SYST 145
[2022-12-04] MEDS: LevALBUTEROL HCL 1.25 MG/0.5 ML *CONC.* VIAL.NEB (XOPENEX CONC.) INH SCH ×4 (01:44→20:31)
[2022-12-04] MEDS: PIPERACILLIN/TAZO 3.375/DEX-IS 50 ML IV SCH (05:01)
[2022-12-04] MEDS: metroNIDAZOLE 500 mg/NS 100 ML IV SCH ×3 (05:50→22:00)
[2022-12-04] MEDS: methylPREDNISolone SOD SUCC/PF 62.5 MG/ML VIAL IVP SCH ×4 (05:51→23:05)
[2022-12-04] MEDS: LEVOTHYROXINE SODIUM 0.075 MG TABLET PO SCH (06:08)
[2022-12-04] MEDS: INSULIN LISPRO SLIDING SCALE 100 UNITS/ML, 3 ML VIAL (humaLOG) SUBCUT PRN ×4 (06:09→23:04)
[2022-12-04 07:19] LABS: BASOPHILS % (AUTO) 0.2 % (0.0-2.0); HEMATOCRIT 31.4 % (36-48); HEMOGLOBIN 10.5 g/dL (12.0-16.0); LYMPHOCYTES # (AUTO) 0.6 K/uL (1.0-5.5); LYMPHOCYTES % (AUTO) 8.5 % (20.5-51.5); MEAN CORPUSCULAR HEMOGLOBIN 30 pg (27-31); MEAN CORPUSCULAR HGB CONC 33 % (32-36); MEAN CORPUSCULAR VOLUME 90 fL (79.0-98.0); MONOCYTES # (AUTO) 0.1 K/uL (0.0-1.0); MONOCYTES % (AUTO) 1.7 % (1.7-9.3); NEUTROPHILS # (AUTO) 6.8 K/uL (1.8-7.7); NEUTROPHILS % (AUTO) 89.6 % (40.0-70.0); PLATELET COUNT (AUTO) 311 K/uL (130-430); RED BLOOD CELL COUNT(AUTO) 3.49 MIL/uL (4.2-6.2); WHITE BLOOD COUNT (AUTO) 7.5 K/uL (4.8-10.8)
[2022-12-04 08:00] VITALS: BP_SYST 128
[2022-12-04 08:13] LABS: ALANINE AMINOTRANSFERASE 14 U/L (12-78); ALBUMIN 2.4 g/dL (3.4-4.8); ANION GAP 14 (5-15); ASPARTATE AMINOTRANSFERASE 12 U/L (10-37); CALCIUM 7.5 mg/dL (8.4-11.0); CHLORIDE 106 mmol/L (98-107); CREATININE 1.02 mg/dL (0.55-1.30); GLUCOSE 208 mg/dL (70-99); TOTAL BILIRUBIN 0.4 mg/dL (0.0-1.0); UREA NITROGEN, BLOOD 12 mg/dL (8-21)
[2022-12-04] MEDS: LOSARTAN POTASSIUM 50 MG TABLET (COZAAR) PO SCH ×2 (08:58→21:58)
[2022-12-04] MEDS: PANTOPRAZOLE SODIUM 40 MG/VIAL (PROTONIX) IVP SCH (08:58)
[2022-12-04] MEDS: APIXABAN 2.5 MG TABLET PO SCH ×2 (08:59→21:55)
[2022-12-04] MEDS: CALCIUM CARBONATE/VITAMIN D3 1 TAB TABLET PO SCH ×2 (08:59→21:56)
[2022-12-04] MEDS: METOPROLOL TARTRATE 25 MG TABLET PO SCH ×2 (08:59→21:59)
[2022-12-04] MEDS: DOCUSATE SODIUM 100 MG CAPSULE PO SCH ×2 (09:00→21:53)
[2022-12-04] MEDS: SENNOSIDES 8.6 MG TABLET PO SCH ×2 (09:00→21:54)
[2022-12-04] MEDS: KCL 20 mEq in NS 1000 mL 1,000 ML IV SCH ×2 (09:01→15:33)
[2022-12-04 11:17] VITALS: BP_SYST 134
[2022-12-04 12:00] VITALS: BP_SYST 110
[2022-12-04] MEDS ORDERED: FUROSEMIDE 20 MG/2 ML VIAL IVP ONE (13:00)
[2022-12-04 16:46] VITALS: BP_SYST 129
[2022-12-05 00:49] VITALS: BP_SYST 121
[2022-12-05] MEDS: LevALBUTEROL HCL 1.25 MG/0.5 ML *CONC.* VIAL.NEB (XOPENEX CONC.) INH SCH ×4 (04:15→20:10)
[2022-12-05 04:19] VITALS: BP_SYST 127
[2022-12-05] MEDS: methylPREDNISolone SOD SUCC/PF 62.5 MG/ML VIAL IVP SCH ×3 (05:34→17:48)
[2022-12-05] MEDS: metroNIDAZOLE 500 mg/NS 100 ML IV SCH (05:34)
[2022-12-05] MEDS: LEVOTHYROXINE SODIUM 0.075 MG TABLET PO SCH (06:12)
[2022-12-05 08:00] VITALS: BP_SYST 125
[2022-12-05] MEDS: LOSARTAN POTASSIUM 50 MG TABLET (COZAAR) PO SCH ×3 (09:29→09:42)
[2022-12-05] MEDS: FUROSEMIDE 20 MG/2 ML VIAL IVP SCH (09:32)
[2022-12-05] MEDS: PANTOPRAZOLE SODIUM 40 MG/VIAL (PROTONIX) IVP SCH (09:33)
[2022-12-05] MEDS: APIXABAN 2.5 MG TABLET PO SCH ×2 (09:36→20:36)
[2022-12-05] MEDS: SENNOSIDES 8.6 MG TABLET PO SCH ×2 (09:40→20:34)
[2022-12-05] MEDS: DOCUSATE SODIUM 100 MG CAPSULE PO SCH ×2 (09:53→20:34)
[2022-12-05] MEDS: METOPROLOL TARTRATE 25 MG TABLET PO SCH ×2 (09:55→20:47)
[2022-12-05] MEDS: CALCIUM CARBONATE/VITAMIN D3 1 TAB TABLET PO SCH ×2 (10:02→20:34)
[2022-12-05 10:37] VITALS: BP_SYST 118
[2022-12-05] MEDS: INSULIN LISPRO SLIDING SCALE 100 UNITS/ML, 3 ML VIAL (humaLOG) SUBCUT PRN ×3 (13:35→20:38)
[2022-12-05 16:32] VITALS: BP_SYST 134
[2022-12-05 19:55] VITALS: BP_SYST 96
[2022-12-05] MEDS: METHYLPREDNISOLONE SOD SUCC 40 MG/ML VIAL IVP SCH (20:34)
[2022-12-06 00:27] VITALS: BP_SYST 139
[2022-12-06] MEDS: LevALBUTEROL HCL 1.25 MG/0.5 ML *CONC.* VIAL.NEB (XOPENEX CONC.) INH SCH ×4 (00:56→20:05)
[2022-12-06] MEDS: KCL 20 mEq in NS 1000 mL 1,000 ML IV SCH (06:11)
[2022-12-06] MEDS: INSULIN LISPRO SLIDING SCALE 100 UNITS/ML, 3 ML VIAL (humaLOG) SUBCUT PRN ×4 (06:16→22:20)
[2022-12-06] MEDS: LEVOTHYROXINE SODIUM 0.075 MG TABLET PO SCH (06:20)
[2022-12-06] MEDS: SENNOSIDES 8.6 MG TABLET PO SCH ×2 (10:07→22:05)
[2022-12-06] MEDS: DOCUSATE SODIUM 100 MG CAPSULE PO SCH ×2 (10:08→22:05)
[2022-12-06] MEDS: CALCIUM CARBONATE/VITAMIN D3 1 TAB TABLET PO SCH ×2 (10:10→22:06)
[2022-12-06] MEDS: METOPROLOL TARTRATE 25 MG TABLET PO SCH ×2 (10:12→22:06)
[2022-12-06] MEDS: FUROSEMIDE 20 MG/2 ML VIAL IVP SCH (10:44)
[2022-12-06] MEDS: PANTOPRAZOLE SODIUM 40 MG/VIAL (PROTONIX) IVP SCH (10:44)
[2022-12-06] MEDS: METHYLPREDNISOLONE SOD SUCC 40 MG/ML VIAL IVP SCH ×2 (10:44→22:04)
[2022-12-06] MEDS: APIXABAN 2.5 MG TABLET PO SCH ×2 (11:00→22:08)
[2022-12-06 11:34] VITALS: BP_SYST 138
[2022-12-06 18:09] VITALS: BP_SYST 116
[2022-12-06] MEDS: LOSARTAN POTASSIUM 50 MG TABLET (COZAAR) PO SCH (22:05)
[2022-12-07] VITALS: BP_SYST 134
[2022-12-07 00:55] VITALS: BP_SYST 128
[2022-12-07] MEDS: LevALBUTEROL HCL 1.25 MG/0.5 ML *CONC.* VIAL.NEB (XOPENEX CONC.) INH SCH ×3 (01:24→13:46)
[2022-12-07] MEDS: LEVOTHYROXINE SODIUM 0.075 MG TABLET PO SCH (06:01)
[2022-12-07 06:10] LABS: BASOPHILS % (AUTO) 0.4 % (0.0-2.0); HEMATOCRIT 31.1 % (36-48); HEMOGLOBIN 10.4 g/dL (12.0-16.0); LYMPHOCYTES # (AUTO) 0.9 K/uL (1.0-5.5); LYMPHOCYTES % (AUTO) 10.3 % (20.5-51.5); MEAN CORPUSCULAR HEMOGLOBIN 30 pg (27-31); MEAN CORPUSCULAR HGB CONC 34 % (32-36); MEAN CORPUSCULAR VOLUME 89 fL (79.0-98.0); MONOCYTES # (AUTO) 0.6 K/uL (0.0-1.0); MONOCYTES % (AUTO) 7.4 % (1.7-9.3); NEUTROPHILS # (AUTO) 7.1 K/uL (1.8-7.7); NEUTROPHILS % (AUTO) 81.9 % (40.0-70.0); PLATELET COUNT (AUTO) 318 K/uL (130-430); RED BLOOD CELL COUNT(AUTO) 3.48 MIL/uL (4.2-6.2); RED CELL DISTRIBUTION WIDTH 15.5 % (9.0-15.0); WHITE BLOOD COUNT (AUTO) 8.6 K/uL (4.8-10.8)
[2022-12-07 06:51] LABS: ALANINE AMINOTRANSFERASE 11 U/L (12-78); ALBUMIN 2.5 g/dL (3.4-4.8); ANION GAP 10 (5-15); ASPARTATE AMINOTRANSFERASE 9 U/L (10-37); CALCIUM 7.9 mg/dL (8.4-11.0); CHLORIDE 109 mmol/L (98-107); CREATININE 0.86 mg/dL (0.55-1.30); GLUCOSE 126 mg/dL (70-99); TOTAL BILIRUBIN 0.3 mg/dL (0.0-1.0); UREA NITROGEN, BLOOD 27 mg/dL (8-21)
[2022-12-07] MEDS: METHYLPREDNISOLONE SOD SUCC 40 MG/ML VIAL IVP SCH (09:00)
[2022-12-07] MEDS: PANTOPRAZOLE SODIUM 40 MG/VIAL (PROTONIX) IVP SCH (09:00)
[2022-12-07] MEDS: FUROSEMIDE 20 MG/2 ML VIAL IVP SCH (09:00)
[2022-12-07] MEDS: SENNOSIDES 8.6 MG TABLET PO SCH (09:00)
[2022-12-07 09:16] VITALS: BP_SYST 150
[2022-12-07] MEDS: DOCUSATE SODIUM 100 MG CAPSULE PO SCH (10:43)
[2022-12-07] MEDS: CALCIUM CARBONATE/VITAMIN D3 1 TAB TABLET PO SCH (10:43)
[2022-12-07] MEDS: METOPROLOL TARTRATE 25 MG TABLET PO SCH (10:44)
[2022-12-07] MEDS: LOSARTAN POTASSIUM 50 MG TABLET (COZAAR) PO SCH (10:45)
[2022-12-07] MEDS: APIXABAN 2.5 MG TABLET PO SCH (10:46)
[2022-12-07 11:45] VITALS: BP_SYST 145
[2022-12-07 15:31] VITALS: BP_SYST 146
[2022-12-07 16:38] VITALS: BP_SYST 130
== END 2022-12-07 22:37 | disposition home health service (06) | DRG 45 ==
LOC: SED 15:05 → STU 18:28 → SMU 21:13
PROVIDERS: ADMIT Family Medicine; ATTEND Family Medicine
PROC: 0DB98ZX Excision of Duodenum, Via Natural or Artificial Opening Endoscopic, Diagnostic (ICD-10-PCS; 2022-11-29)
PROC: 0DB78ZX Excision of Stomach, Pylorus, Via Natural or Artificial Opening Endoscopic, Diagnostic (ICD-10-PCS; 2022-11-29)
PROC: 0DB38ZX Excision of Lower Esophagus, Via Natural or Artificial Opening Endoscopic, Diagnostic (ICD-10-PCS; 2022-11-29)
PROC: 4A00X4Z Measurement of Central Nervous Electrical Activity, External Approach (ICD-10-PCS; principal; 2022-11-30)
DX: I63.9 Cerebral infarction, unspecified (principal); G93.41 Metabolic encephalopathy; K85.90 Acute pancreatitis without necrosis or infection, unspecified; R65.10 Systemic inflammatory response syndrome (SIRS) of non-infectious origin without acute organ dysfunction; J18.1 Lobar pneumonia, unspecified organism; R16.0 Hepatomegaly, not elsewhere classified; I48.20 Chronic atrial fibrillation, unspecified; E11.9 Type 2 diabetes mellitus without complications; I10 Essential (primary) hypertension; K29.70 Gastritis, unspecified, without bleeding; E03.9 Hypothyroidism, unspecified; N39.0 Urinary tract infection, site not specified; K44.9 Diaphragmatic hernia without obstruction or gangrene; R53.81 Other malaise; K57.30 Diverticulosis of large intestine without perforation or abscess without bleeding; J98.01 Acute bronchospasm; E87.70 Fluid overload, unspecified; Z20.822 Contact with and (suspected) exposure to COVID-19; D64.9 Anemia, unspecified; K21.9 Gastro-esophageal reflux disease without esophagitis; Z95.0 Presence of cardiac pacemaker; Z90.49 Acquired absence of other specified parts of digestive tract; Z87.440 Personal history of urinary (tract) infections; Z79.83 Long term (current) use of bisphosphonates; Z79.01 Long term (current) use of anticoagulants; Z79.84 Long term (current) use of oral hypoglycemic drugs; Z79.899 Other long term (current) drug therapy
CPT/HCPCS: 36415; 43239; 70450-TC; 70490; 71045; 71250-TC; 76376; 76700-TC; 80048; 80053; 81003; 82105; 82150; 82378; 82962; 83605; 83690; 83735; 83880; 85025; 85610-TC; 85730-TC; 86301; 87040; 87081; 88305; 88312; 88313; 93005; 94640; 94760; 95816; 97110-GO; 97110-GP; 97112-GP; 97530-GO; 97530-GP; 97535-GO; 99285; C9113; J1030; J1940; J2175; J2185; J2250; J2270; J2543; J2930; J3370; J3480; J3490; J7050; J7612; Q9964; Q9967